=== PATIENT | female | born 1975 | race American Indian/Alaskan Native ===

== ENCOUNTER 2019-06-08 12:55 | Emergency (ER) | payer OTHER ==
[2019-06-08 13:19] VITALS: BP 127/79
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
[2019-06-08] MEDS ORDERED: IBUPROFEN PO ONE (16:08)
[2019-06-08] MEDS ORDERED: NORCO 5/325 PO ONE (16:08)
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
== END 2019-06-08 17:39 | disposition home or self-care (01) ==
LOC: ED 12:55
DX: S82.831A Other fracture of upper and lower end of right fibula, initial encounter for closed fracture (principal); S61.412A Laceration without foreign body of left hand, initial encounter; S09.90XA Unspecified injury of head, initial encounter; F17.200 Nicotine dependence, unspecified, uncomplicated; I10 Essential (primary) hypertension; Z79.899 Other long term (current) drug therapy; V89.2XXA Person injured in unspecified motor-vehicle accident, traffic, initial encounter; Y93.89 Activity, other specified; Y92.488 Other paved roadways as the place of occurrence of the external cause; Y99.8 Other external cause status
CPT/HCPCS: 70450; 71046; 72125; 99284

== ENCOUNTER 2019-08-31 18:14 | Emergency (ER) | payer OTHER ==
[2019-08-31] MEDS ORDERED: HYDROcodone/ACETAMINOPHEN 10-325MG TAB PO ONE (22:14)
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
[2019-09-01 01:08] VITALS: BP 119/73
== END 2019-09-01 01:07 | disposition home or self-care (01) ==
LOC: ED 18:14
DX: S39.012A Strain of muscle, fascia and tendon of lower back, initial encounter (principal); I10 Essential (primary) hypertension; X58.XXXA Exposure to other specified factors, initial encounter; Y93.89 Activity, other specified; Y92.89 Other specified places as the place of occurrence of the external cause; Y99.8 Other external cause status
CPT/HCPCS: 72131